=== PATIENT | female | born 1950 | race Caucasian/White ===

== ENCOUNTER → 2018-04-17 | Outpatient (CLI) | payer MEDICARE ==
[~2018-04-17] MED LIST: ABATACEPT/MALTOSE 750 MG in SODIUM CHLORIDE 0.9% 70 ML IVPB ONE; SODIUM CHLORIDE 0.9% 500 ML 500 ML in EMPTY BAG 1 BAG IV PRN
[2018-04-17 12:42] VITALS: BP 114/61; PULSE 99; RESP 16; TEMP 98
== END ==
LOC: PROCWHC3 12:27
PROVIDERS: ATTEND Internal Medicine Rheumatology
DX: M05.79 Rheumatoid arthritis with rheumatoid factor of multiple sites without organ or systems involvement (principal)
CPT/HCPCS: 96365; J0129

== ENCOUNTER 2018-07-05 18:13 | Observation (INO) | payer MEDICARE ==
--- NOTE | 2018-07-05 18:32 | ED ---
Chest Pain HPI - General Chief Complaint: Chest Pain Stated Complaint: chest pain Time Seen by Provider: 07/05/18 18:24 Source: patient, EMS Mode of arrival: EMS Limitations: no limitations - History of Present Illness Initial Comments: Patient is a 67-year-old female presenting for chest pain. The patient states that it is been intermittent for the last 2-3 weeks and worsening over the last half hour. It feels like a stabbing sensation deficit of her chest which improved with nitro and aspirin. She also admits to significant amount of indigestion and decided to come in today because the pain she had today was much more severe compared to the pain she had a couple weeks ago. She denies any fever, chills, cough, nausea/vomiting/diarrhea. - Related Data Home Medications Medication Instructions Recorded Confirmed Escitalopram [Lexapro] 10 mg PO DAILY 01/24/17 07/05/18 LORazepam [Ativan] 1 mg PO BID 01/24/17 07/05/18 Omeprazole [PriLOSEC] 20 mg PO DAILY 01/24/17 07/05/18 Ondansetron [Zofran] 4 mg PO Q8HR PRN 01/24/17 07/05/18 Pravastatin Sodium [Pravachol] 20 mg PO HS 01/24/17 07/05/18 QUEtiapine FUMARATE [SEROquel] 150 mg PO HS 01/24/17 07/05/18 Baclofen [Lioresal] 20 mg PO TID 07/05/18 07/05/18 Latanoprost/Pf [Latanoprost 0.005% 1 drop BOTH EYES HS 07/05/18 07/05/18 Eye Drop] Levothyroxine Sodium [Synthroid] 100 mcg PO DAILY 07/05/18 07/05/18 Lisinopril [Zestril] 10 mg PO DAILY 07/05/18 07/05/18 Nortriptyline HCl [Pamelor] 50 mg PO DAILY 07/05/18 07/05/18 Ranitidine HCl 150 mg PO DAILY 07/05/18 07/05/18 Allergies Allergy/AdvReac Type Severity Reaction Status Date / Time tocilizumab [From Actemra] Allergy Intermediate Rash/Hives Verified 07/05/18 18:41 Review of Systems ROS Statement: Those systems with pertinent positive or pertinent negative responses have been documented in the HPI. Constitutional: Negative for chills, fatigue and fever. HENT: Negative for congestion. Respiratory: Negative for chest tightness, shortness of breath and wheezing. Negative for cough Cardiovascular: Positive for chest pain and negative for palpitations. Gastrointestinal: Negative for abdominal pain. Negative for abdominal distention, diarrhea, nausea and vomiting. Genitourinary: Negative for dysuria. Musculoskeletal: Negative for back pain, neck pain and neck stiffness. Skin: Negative for color change. Neurological: Negative for dizziness, speech difficulty, weakness and light- headedness. Psychiatric/Behavioral: Negative for agitation and confusion. Negative for anxiety ROS Other: All systems not noted in ROS Statement are negative. EKG Findings - EKG Comments: EKG Findings:: EKG shows normal sinus rhythm with a rate of 97 bpm, NE interval 116, QRS 86, QTC 464. Past Medical History Past Medical History: Hypertension, Rheumatoid Arthritis (RA), Thyroid Disorder Additional Past Medical History / Comment(s): colitis History of Any Multi-Drug Resistant Organisms: None Reported Past Surgical History: Cholecystectomy, Hysterectomy, Tonsillectomy Past Anesthesia/Blood Transfusion Reactions: No Reported Reaction Past Psychological History: Anxiety, Depression Smoking Status: Former smoker Past Alcohol Use History: None Reported Past Drug Use History: None Reported - Past Family History Father Family Medical History: Myocardial Infarction ([place]) General Exam - General Exam Comments Initial Comments: Constitutional: Pt appears well-developed and well-nourished. No distress. Head: Normocephalic and atraumatic. Eyes: EOM are normal. Neck: Normal range of motion. Neck supple. Cardiovascular: Normal rate, regular rhythm, S1 normal, S2 normal and normal heart sounds. Exam reveals no gallop and no friction rub. No murmur heard. Pulmonary/Chest: Effort normal and breath sounds normal. No tachypnea and no bradypnea. No respiratory distress. No wheezes or rales noted. Abdominal: Soft. Bowel sounds are normal. Pt exhibits no shifting dullness, no distension, no pulsatile liver, no fluid wave, no abdominal bruit and no ascites. There is no rigidity, no rebound, no guarding, no tenderness at McBurney's point and negative Patel's sign. There is no tenderness. Musculoskeletal: Normal range of motion. Neurological: Pt is alert and oriented to person, place, and time. No cranial nerve deficit. Skin: Skin is warm and dry. No rash noted. Pt is not diaphoretic. No erythema. No pallor. Psychiatric: Pt has a normal mood and affect. Pt behavior is normal. Thought content normal. Limitations: no limitations Course Vital Signs 07/05/18 07/05/18 18:16 19:14 Temperature 97.7 F Pulse Rate 98 92 Respiratory 20 18 Rate Blood Pressure 134/92 134/74 O2 Sat by Pulse 99 100 Oximetry Chest Pain MDM - MDM Laboratory studies showed that there was no significant leukocytosis, which like derangements and from a cardiac standpoint, EKG had no significant abnormalities and d-dimer and troponin were both negative. However, because of the patient's significant risk factors, is felt that the patient should be placed in observation for continued evaluation and treatment. The time of disposition, patient was well-appearing and in no acute distress.Explained all labs and diagnostic test results and that we will admit patient to hospital. Pt is agreeable to plan and case has been discussed with Dr. Ramirez and they agree to accept the pt. Disposition Clinical Impression: Chest pain Disposition: ADMITTED IP TO THIS HOSP Condition: Good Referrals: Ramona Xiong MD [Primary Care Provider] - 1-2 days Decision to Admit Reason: Admit from EC Decision Date: 07/05/18 Decision Time: 19:57
[2018-07-05 18:43] LABS: Basophils % (A) 1 %; Eosinophils # (A) 0.1 k/uL (0-0.7); Eosinophils % (A) 1 %; HCT 36.5 % (34.0-46.0); HGB 12.2 gm/dL (11.4-16.0); Lymphocytes # (A) 2.2 k/uL (1.0-4.8); Lymphocytes % (A) 28 %; MCH 33.6 pg (25.0-35.0); MCHC 33.5 g/dL (31.0-37.0); MCV 100.5 fL (80.0-100.0); Mean Platelet Volume 6.8; Monocytes # (A) 0.5 k/uL (0-1.0); Monocytes % (A) 6 %; Neutrophils # (A) 4.8 k/uL (1.3-7.7); Neutrophils % (A) 62 %; Platelet Count 264 k/uL (150-450); RBC 3.64 m/uL (3.80-5.40); RDW 12.8 % (11.5-15.5); WBC 7.8 k/uL (3.8-10.6)
[2018-07-05 18:57] LABS: Albumin 4.2 g/dL (3.5-5.0); Calcium 9.4 mg/dL (8.4-10.2); Potassium 4.6 mmol/L (3.5-5.1); Total Bilirubin 0.5 mg/dL (0.2-1.3); Total Protein 7.2 g/dL (6.3-8.2)
--- NOTE | 2018-07-05 19:00 | XR ---
EXAMINATION TYPE: XR chest 2V DATE OF EXAM: 07/05/2018 COMPARISON: NONE HISTORY: Chest pain TECHNIQUE: Frontal and lateral views of the chest are obtained. FINDINGS: There is no focal air space opacity, pleural effusion, or pneumothorax seen. The cardiac silhouette size is within normal limits. The osseous structures are intact. Minimal degenerative ch anges of the spine are noted. IMPRESSION: No acute cardiopulmonary process.
[2018-07-05 19:11] LABS: D-Dimer 0.2 mg/L FEU (<0.60); INR 0.9 (<1.2); Partial Thromboplastin Time 22.1 sec (22.0-30.0); Prothrombin Time 10.1 sec (9.0-12.0)
[2018-07-05] MEDS ORDERED: NITROGLYCERIN SL TABS 0.4 MG TAB SUBLINGUAL PRN (19:52)
[2018-07-05] MEDS: ATORVASTATIN 40 MG TAB PO SCH (22:08)
[2018-07-05] MEDS ORDERED: MAG HYDROX/AL HYDROX/SIMETH 30 ML CUP PO PRN (22:17)
[2018-07-05] MEDS ORDERED: ONDANSETRON 4 MG/2 ML VIAL IVP PRN (22:20)
[2018-07-05] MEDS ORDERED: NALOXONE 0.4 MG/ML 1 ML VIAL IV PRN (22:20)
[2018-07-05] MEDS ORDERED: MORPHINE SULFATE 4 MG/ML SYRINGE IV PRN (22:20)
--- NOTE | 2018-07-05 22:29 | P.HPIM ---
History of Present Illness H&P Date: 07/05/18 Chief Complaint: chest pain 67-year-old female with history of depression, hypertension, hyperlipidemia Patient presented to the hospital with two-week history of intermittent chest pain however today she had a severe attack that lasted longer than the other ones. He was more severe in character. She described it as stabbing in nature retrosternal radiating to the left arm 10 out of 10 in severity associated with nausea but no vomiting, associated with some dizziness and shortness of breath but no sweating. She was relaxed at home trying to get changed when the attack happened. Earlier she carried on her normal activities around the house she was able to move a 30 pound table with the assistance of her daughter with no limitations. However she does recall that over the past 2 weeks she was having random attacks of sudden onset chest pain of less severity that resolves on its own and was off-and-on over the past 2 weeks. She called an ambulance and pain improved after taking aspirin in the ambulance and then improved further after taking the sublingual nitro patient is also reporting some indigestion for which she takes ranitidine and omeprazole at home. Patient doesn't take aspirin on regular basis because it upsets her stomach. She denies any history of EGD she denies any history of bloody bowel movements or melena. She had a colonoscopy recently which reported to be normal Patient reports that she had a stress test 3 years ago and was negative she never had the left heart cath Patient was hospitalized in January 2017 for colitis. Patient is currently more comfortable she continues to have milder form of the pain and she is also complaining of some indigestion. Otherwise her initial labs and EKG was unremarkable Review of Systems Pertinent positives as noted in HPI. 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, B/L catarct surgery Past Anesthesia/Blood Transfusion Reactions: No Reported Reaction Smoking Status: Former smoker - Past Family History Father Family Medical History: Myocardial Infarction ([place]) Medications and Allergies Home Medications Medication Instructions Recorded Confirmed Type Escitalopram [Lexapro] 10 mg PO DAILY 01/24/17 07/05/18 History LORazepam [Ativan] 1 mg PO BID 01/24/17 07/05/18 History Omeprazole [PriLOSEC] 20 mg PO DAILY 01/24/17 07/05/18 History Ondansetron [Zofran] 4 mg PO Q8HR PRN 01/24/17 07/05/18 History Pravastatin Sodium [Pravachol] 20 mg PO HS 01/24/17 07/05/18 History QUEtiapine FUMARATE [SEROquel] 150 mg PO HS 01/24/17 07/05/18 History Baclofen [Lioresal] 20 mg PO TID 07/05/18 07/05/18 History Latanoprost/Pf [Latanoprost 0.005% 1 drop BOTH EYES HS 07/05/18 07/05/18 History Eye Drop] Levothyroxine Sodium [Synthroid] 100 mcg PO DAILY 07/05/18 07/05/18 History Lisinopril [Zestril] 10 mg PO DAILY 07/05/18 07/05/18 History Nortriptyline HCl [Pamelor] 50 mg PO DAILY 07/05/18 07/05/18 History Ranitidine HCl 150 mg PO DAILY 07/05/18 07/05/18 History Allergies Allergy/AdvReac Type Severity Reaction Status Date / Time [facility] Allergy Intermediate Rash/Hives Verified 07/05/18 20:39 Physical Exam Vitals: Vital Signs Temp Pulse Resp BP Pulse Ox 07/05/18 21:42 18 07/05/18 20:23 92 18 135/68 98 07/05/18 19:14 92 18 134/74 100 07/05/18 18:16 97.7 F 98 20 134/92 99 Intake and Output 07/05/18 07/05/18 07/05/18 06:59 14:59 22:59 Other: # Voids 1 Weight 72.121 kg Constitutional: No acute distress, conversant, pleasant Eyes: Anicteric sclerae, moist conjunctiva, no lid-lag Pupils equal round reactive to light ENMT: NC/AT Oropharynx clear, no erythema, or exudates Neck: Supple, FROM, no masses, or JVD No carotid bruits No thyromegaly Lungs: Clear to auscultation Clear to percussion Normal respiratory effort, no accessory muscle use Cardiovascular: Heart regular in rate and rhythm, No murmurs, gallops, or rubs No peripheral edema Chest pain is not reproducible by palpation of the chest Abdominal: Soft Discomfort to deep palpation of the epigastric region , no guarding, rebound or rigidity Abdomen moving with respiration Normoactive bowel sounds No hepatomegaly, No splenomegaly No palpable mass No abdominal wall hernia noted Skin: Normal temperature, tone, texture, turgor No induration No subcutaneous nodules No rash, lesions No ulcers Extremities: No digital cyanosis No clubbing Pedal pulses intact and symmetrical Radial pulses intact and symmetrical No calf tenderness Psychiatric: Alert and oriented to person, place and time Appropriate affect fair judgment Neuro Muscles Strength 5/5 in all 4 extremities Sensation to light touch grossly present throughout Cranial nerves II-XII grossly intact No focal sensory deficits Lymphatics: no palpable cervical or supraclavicular , or inguinal lymph nodes Results CBC & Chem 7: 07/05/18 18:31 07/05/18 18:31 Labs: Abnormal Lab Results - Last 24 Hours (Table) 07/05/18 07/05/18 Range/Units 18:31 18:31 RBC 3.64 L (3.80-5.40) m/uL MCV 100.5 H (80.0-100.0) fL BUN 18 H (7-17) mg/dL Glucose 107 H (74-99) mg/dL Thrombosis Risk Factor Assmnt - Choose All That Apply Each Risk Factor Represents 2 Points: Age 61-74 years Thrombosis Risk Factor Assessment Total Risk Factor Score: 2 Thrombosis Risk Factor Assessment Level: Low Risk Assessment and Plan Assessment: 67-year-old female with history of hypertension and hyperlipidemia, patient has history of angina. Admitted as an observation with anticipated length of stay less than 48 hours for unstable angina started today. Patient also reported symptoms of indigestion. Initial labs and EKG was unremarkable. Patient pain improved with nitro, will be admitted for further care and monitoring Plan: Unstable angina Aspirin Nitro when necessary Atorvastatin Continue home medications Cardiac monitoring Trend cardiac enzymes Cardiology evaluation Nothing by mouth after midnight Morphine when necessary for severe pain When necessary benzos for anxiety Gastritis PPI daily Maalox when necessary Chronic conditions Arthritis Hypertension Hypothyroid Hyperlipidemia Continue home meds DVT prophylaxis heparin subcu 3 times a day Surrogate decision-maker: Patient's CODE STATUS: Full code Discussed with: Patient, ER Anticipated discharge: <[address]: Home A total of 60 minutes was spent on the care of this complex patient more than 50% of the time was spent in counseling and care coordination.
[2018-07-05] MEDS: LORazepam 1 MG TAB PO SCH (23:06)
[2018-07-05] MEDS: HEPARIN SODIUM,PORCINE 5,000 UNIT/ML 1 ML VIAL SQ SCH (23:06)
[2018-07-05] MEDS: NORTRIPTYLINE 25 MG CAP PO SCH (23:06)
[2018-07-05] MEDS: LATANOPROST 0.005% OPHTH DROPS 2.5 ML BTL BOTH EYES SCH (23:06)
[2018-07-05] MEDS: PANTOPRAZOLE 40 MG TABLET PO SCH (23:07)
[2018-07-05] MEDS: QUEtiapine 50 MG TAB PO SCH (23:07)
[2018-07-05] MEDS: MELATONIN 3 MG TABLET PO SCH (23:10)
[2018-07-05] MEDS: SODIUM CHLORIDE 0.9% 1,000 ML IV SCH (23:11)
[2018-07-05] MEDS ORDERED: BACLOFEN 10 MG TAB PO SCH (23:47)
[2018-07-06] MEDS: BACLOFEN 10 MG TAB PO SCH ×4 (00:13→20:15)
[2018-07-06] MEDS: LEVOTHYROXINE 100 MCG TAB PO SCH (06:25)
[2018-07-06] MEDS: LORazepam 1 MG TAB PO SCH ×2 (08:46→20:15)
[2018-07-06] MEDS: HEPARIN SODIUM,PORCINE 5,000 UNIT/ML 1 ML VIAL SQ SCH ×3 (08:46→23:13)
[2018-07-06] MEDS: PANTOPRAZOLE 40 MG TABLET PO SCH (08:47)
[2018-07-06] MEDS: ESCITALOPRAM 10 MG TAB PO SCH (08:47)
[2018-07-06] MEDS: ASPIRIN 325 MG TAB PO SCH (08:47)
[2018-07-06] MEDS: NORTRIPTYLINE 25 MG CAP PO SCH (08:47)
[2018-07-06] MEDS: LISINOPRIL 10 MG TAB PO SCH (08:47)
[2018-07-06] MEDS: SODIUM CHLORIDE 0.9% 1,000 ML IV SCH ×3 (08:49→23:16)
[2018-07-06 08:58] LABS: Basophils % (A) 1 %; Eosinophils # (A) 0.1 k/uL (0-0.7); Eosinophils % (A) 2 %; HCT 33.3 % (34.0-46.0); HGB 10.7 gm/dL (11.4-16.0); Lymphocytes # (A) 1.6 k/uL (1.0-4.8); Lymphocytes % (A) 33 %; MCH 32.3 pg (25.0-35.0); MCHC 32.2 g/dL (31.0-37.0); MCV 100.1 fL (80.0-100.0); Mean Platelet Volume 7.2; Monocytes # (A) 0.4 k/uL (0-1.0); Monocytes % (A) 8 %; Neutrophils # (A) 2.8 k/uL (1.3-7.7); Neutrophils % (A) 55 %; Platelet Count 216 k/uL (150-450); RBC 3.33 m/uL (3.80-5.40); RDW 12.6 % (11.5-15.5)
[2018-07-06] MEDS ORDERED: BACLOFEN 10 MG TAB PO SCH ×2 (09:00→23:29)
[2018-07-06 09:12] LABS: Anion Gap 7 mmol/L; Blood Urea Nitrogen 16 mg/dL (7-17); Calcium 8.9 mg/dL (8.4-10.2); Carbon Dioxide 24 mmol/L (22-30); Chloride 108 mmol/L (98-107); Cholesterol 152 mg/dL (<200); Glucose 100 mg/dL (74-99); HDL Cholesterol 64 mg/dL (40-60); LDL Cholesterol,Calculated 64 mg/dL (0-99); Potassium 4.7 mmol/L (3.5-5.1); Sodium 139 mmol/L (137-145); Triglycerides 119 mg/dL (<150)
[2018-07-06] MEDS ORDERED: SODIUM CHLORIDE 0.9% 1,000 ML in EMPTY BAG 1 BAG IV ONE (12:21)
--- NOTE | 2018-07-06 12:24 | P.CRDCN ---
History of Present Illness History of present illness: This is a pleasant 67-year-old female past medical history significant for hypertension, dyslipidemia, hypothyroidism, rheumatoid arthritis, anxiety, depression and chronic nicotine dependence of which she quit 4 months ago. She denies history of coronary artery disease and has never seen a radio division lieutenant for any reason. We have been asked to see her in consultation for symptoms of chest discomfort. She states yesterday while changing her clothes she started feeling a sharp pain in the mid-sternal region with radiation to the left arm with shortness of breath. This persisted for approximately 20 minutes until given SL nitro and aspirin per EMS. She has felt intermittent similar type pains overnight since coming to the hospital all while laying in bed at rest. No exert ional chest pain. She denies associated nausea, vomiting, palpitations, diaphoresis or dizziness. EKG reveals sinus mechanism with no acute ST or T wave abnormalities noted. Chest x-ray is negative for an acute cardiopulmonary process. Laboratory data reviewed, WBC 5, hemoglobin 10.7, platelets 216, d-dimer 0.2, sodium 139, potassium 4.7, creatinine 0.73, cardiac enzymes negative 3, LDL 64, HDL 64. Current cardiac medications include pravastatin 20 mg daily, lisinopril 10 mg daily. At the time of my exam: CONSTITUTIONAL: Denies fever. Denies chills. EYES: Denies blurred vision. Denies vision changes. Denies eye pain. EARS, NOSE, MOUTH & THROAT: Denies headache. Denies sore throat. Denies ear pain. CARDIOVASCULAR: Denies chest pain. Denies shortness of breath. Denies orthopnea. Denies PND. Denies palpitations. RESPIRATORY: Denies cough. GASTROINTESTINAL: Denies abdominal pain. Denies diarrhea. Denies constipation. Denies nausea. Denies vomiting. MUSCULOSKELETAL: Denies myalgias. INTEGUMENTARY: Denies pruitis. Denies rash. NEUROLOGIC: Denies numbness. Denies tingling. Denies weakness. PSYCHIATRIC: Denies anxiety. Denies depression. ENDOCRINE: Denies fatigue. Denies weight change. Denies polydipsia. Denies polyurina. GENITOURINARY: Denies burning, hematuria or urgency with micturation. HEMATOLOGIC: Denies history of anemia. Denies bleeding. Blood pressure 113/66 heart rate 84 afebrile maintaining oxygen saturation on room air GENERAL: This is a 67-year-old female in no apparent distress at the time of my examination. HEENT: Head is atraumatic, normocephalic. Pupils are equal, round. Sclerae anicteric. Conjunctivae are clear. Mucous membranes of the mouth are moist. Neck is supple. There is no jugular venous distention. No carotid bruit is heard. LUNGS: Clear to auscultation no wheezes, rales or rhonchi. No chest wall tenderness is noted on palpation or with deep breathing. HEART: Regular rate and rhythm without murmurs, rubs or gallops. S1 and S2 he radha. ABDOMEN: Soft, nontender. Bowel sounds are heard. No organomegaly noted. EXTREMITIES: No evidence of peripheral edema and no calf tenderness noted. VASCULAR: Radial and dorsalis pedis pulses palpated, no evidence of clubbing. NEUROLOGIC: Patient is awake, alert and oriented x3. ASSESSMENT Unstable angina Hypertension Dyslipidemia Hypothyroid Chronic nicotine dependence, quit 4 months ago Family history of coronary artery disease with father requiring bypass surgery PLAN An acute coronary event has been ruled out. However symptoms are concerning for unstable angina and given the patient's risk factors we recommend proceeding with cardiac catheterization. I have discussed the risks, benefits and alternative therapies for the above-mentioned procedure and for both sedation/analgesia as well as necessary blood product administration, if indicated, as they pertain to this patient. The patient has indicated understanding and acceptance of the risks and procedures discussed. Questions have been answered appropriately and she is agreeable to move forward with the above stated procedure. she will be nothing by mouth after midnight tonight for the procedure tomorrow morning. Obtain 2-D echocardiogram and Doppler study to assess cardiac structure and function. Further recommendations to follow based upon clinical course. Thank you kindly for this consultation. Nurse Practitioner note has been reviewed, I agree with a documented findings and plan of care. Patient was seen and examined. 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, B/L catarct surgery Past Anesthesia/Blood Transfusion Reactions: No Reported Reaction Smoking Status: Former smoker - Past Family History Father Family Medical History: Myocardial Infarction ([place]) Medications and Allergies Home Medications Medication Instructions Recorded Confirmed Type Escitalopram [Lexapro] 10 mg PO DAILY 01/24/17 07/05/18 History LORazepam [Ativan] 1 mg PO BID 01/24/17 07/05/18 History Omeprazole [PriLOSEC] 20 mg PO DAILY 01/24/17 07/05/18 History Ondansetron [Zofran] 4 mg PO Q8HR PRN 01/24/17 07/05/18 History Pravastatin Sodium [Pravachol] 20 mg PO HS 01/24/17 07/05/18 History QUEtiapine FUMARATE [SEROquel] 150 mg PO HS 01/24/17 07/05/18 History Baclofen [Lioresal] 20 mg PO TID 07/05/18 07/05/18 History Latanoprost/Pf [Latanoprost 0.005% 1 drop BOTH EYES HS 07/05/18 07/05/18 History Eye Drop] Levothyroxine Sodium [Synthroid] 100 mcg PO DAILY 07/05/18 07/05/18 History Lisinopril [Zestril] 10 mg PO DAILY 07/05/18 07/05/18 History Nortriptyline HCl [Pamelor] 50 mg PO DAILY 07/05/18 07/05/18 History Ranitidine HCl 150 mg PO DAILY 07/05/18 07/05/18 History Allergies Allergy/AdvReac Type Severity Reaction Status Date / Time tocilizumab [From [facility]] Allergy Intermediate Rash/Hives Verified 07/05/18 20:39 Physical Exam Vitals: Vital Signs Temp Pulse Pulse Resp BP BP Pulse Ox 07/06/18 04:00 97.9 F 84 16 113/66 98 07/06/18 00:00 18 07/05/18 23:25 97.7 F 109 H 18 137/69 97 07/05/18 21:42 18 07/05/18 20:23 92 18 135/68 98 07/05/18 19:14 92 18 134/74 100 07/05/18 18:16 97.7 F 98 20 134/92 99 Intake and Output 07/05/18 07/06/18 07/06/18 21:59 06:59 14:59 Other: # Voids Weight Results 07/06/18 08:28 07/06/18 08:28 Cardiac Enzymes 07/05/18 07/05/18 07/06/18 Range/Units 18:31 18:31 00:31 AST 27 (14-36) U/L Troponin I <0.012 <0.012 (0.000-0.034) ng/mL Coagulation 07/05/18 Range/Units 18:31 PT 10.1 (9.0-12.0) sec APTT 22.1 (22.0-30.0) sec CBC 07/05/18 Range/Units 18:31 WBC 7.8 (3.8-10.6) k/uL RBC 3.64 L (3.80-5.40) m/uL Hgb 12.2 (11.4-16.0) gm/dL Hct 36.5 (34.0-46.0) % Plt Count 264 (150-450) k/uL Comprehensive Metabolic Panel 07/05/18 Range/Units 18:31 Sodium 138 (137-145) mmol/L Potassium 4.6 (3.5-5.1) mmol/L Chloride 104 (98-107) mmol/L Carbon Dioxide 24 (22-30) mmol/L BUN 18 H (7-17) mg/dL Creatinine 0.91 (0.52-1.04) mg/dL Glucose 107 H (74-99) mg/dL Calcium 9.4 (8.4-10.2) mg/dL AST 27 (14-36) U/L ALT 48 (9-52) U/L Alkaline Phosphatase 97 (38-126) U/L Total Protein 7.2 (6.3-8.2) g/dL Albumin 4.2 (3.5-5.0) g/dL Current Medications Generic Name Dose Route Start Last Admin Trade Name Freq PRN Reason Stop Dose Admin Al Hydroxide/Mg Hydroxide 30 ml 07/05/18 22:17 Maalox PO Q4HR PRN GI Upset Aspirin 325 mg 07/06/18 09:00 Aspirin PO DAILY [facility] Atorvastatin Calcium 40 mg 07/05/18 21:00 07/05/18 22:08 Lipitor PO 40 mg HS [facility] Administration Baclofen 20 mg 07/06/18 00:02 07/06/18 00:13 Lioresal PO 20 mg TID [facility] Administration Escitalopram Oxalate 10 mg 07/06/18 09:00 Lexapro PO DAILY [facility] Heparin Sodium (Porcine) 5,000 unit 07/06/18 00:00 07/05/18 23:06 Heparin SQ 5,000 unit Q8HR [facility] Administration Sodium Chloride 1,000 mls @ 100 mls/hr 07/05/18 22:30 07/05/18 23:11 Saline 0.9% IV 100 mls/hr .Q10H [facility] Administration Latanoprost 1 drops 07/05/18 23:00 07/05/18 23:06 Xalatan 0.005% BOTH EYES 1 drops HS [facility] Administration Levothyroxine Sodium 100 mcg 07/06/18 06:30 07/06/18 06:25 Synthroid PO 100 mcg DAILY@0630 [facility] Administration Lisinopril 10 mg 07/06/18 09:00 Zestril PO DAILY [facility] Lorazepam 1 mg 07/05/18 22:30 07/05/18 23:06 Ativan PO 1 mg BID [facility] Administration Melatonin 3 mg 07/05/18 22:30 07/05/18 23:10 Melatonin PO 3 mg HS [facility] Administration Morphine Sulfate 4 mg 07/05/18 22:20 Morphine Sulfate (Inj) IV Q4HR PRN Severe Pain Naloxone HCl 0.2 mg 07/05/18 22:20 Narcan IV Q2M PRN Opioid Reversal Nitroglycerin 0.4 mg 07/05/18 19:52 07/05/18 22:08 Nitrostat SUBLINGUAL 0.4 mg Q5M PRN Administration Chest Pain Nortriptyline HCl 50 mg 07/05/18 23:00 07/05/18 23:06 Pamelor PO 50 mg DAILY [facility] Administration Ondansetron HCl 4 mg 07/05/18 22:20 Zofran IVP Q8HR PRN Nausea And Vomiting Pantoprazole Sodium 40 mg 07/05/18 22:30 07/05/18 23:07 Protonix PO 40 mg DAILY [facility] Administration Quetiapine Fumarate 150 mg 07/05/18 23:00 07/05/18 23:07 Seroquel PO 150 mg HS [facility] Administration Intake and Output 07/05/18 07/06/18 07/06/18 21:59 06:59 14:59 Other: # Voids Weight 07/05/18 18:31 07/05/18 18:31
--- NOTE | 2018-07-06 12:47 | P.PN ---
Subjective Progress Note Date: 07/06/18 Principal diagnosis: Unstable angina Patient was seen and examined. No acute events overnight. Patient reports improvement in her chest pain, currently intermittent (had some episodes overnight), 2-3 out of 10 in severity. Chest pain is not associated with sweating, nausea or vomiting, palpitations, shortness of breath or dizziness. No fever or chills. Objective - Vital Signs Vital signs: Vital Signs Temp 98.2 F 07/06/18 12:00 Pulse 96 07/06/18 12:00 Resp 16 07/06/18 12:00 BP 114/70 07/06/18 12:00 Pulse Ox 98 07/06/18 12:00 Intake & Output 07/05/18 07/06/18 07/06/18 17:59 06:59 18:59 Weight Other: Voiding Method Toilet # Voids - Exam General: [non toxic], [no distress], [appears at stated age], [eating lunch comfortably] Derm: [warm], [dry] Head: [atraumatic], [normocephalic], [symmetric] Eyes: [EOMI], [no lid lag], [anicteric sclera] Mouth: [no lip lesion], [mucus membranes moist] Cardiovascular: [S1S2 reg], [no murmur], [positive DP pulse bilateral] Lungs: [CTA bilateral], [no rhonchi, no rales] , [no accessory muscle use] Abdominal: [soft], [ nontender to palpation], [no guarding], [no appreciable organomegaly] Ext: [no gross muscle atrophy], [no edema], [no contractures] Neuro: [no focal neuro deficits] Psych: [Alert], [oriented], [appropriate affect] - Labs CBC & Chem 7: 07/06/18 08:28 07/06/18 08:28 Labs: Abnormal Lab Results - Last 24 Hours (Table) 07/05/18 07/05/18 07/06/18 Range/Units 18:31 18:31 08:28 RBC 3.64 L (3.80-5.40) m/uL Hgb (11.4-16.0) gm/dL Hct (34.0-46.0) % MCV 100.5 H (80.0-100.0) fL Chloride 108 H (98-107) mmol/L BUN 18 H (7-17) mg/dL Glucose 107 H 100 H (74-99) mg/dL HDL Cholesterol 64 H (40-60) mg/dL 07/06/18 Range/Units 08:28 RBC 3.33 L (3.80-5.40) m/uL Hgb 10.7 L (11.4-16.0) gm/dL Hct 33.3 L (34.0-46.0) % MCV 100.1 H (80.0-100.0) fL Chloride (98-107) mmol/L BUN (7-17) mg/dL Glucose (74-99) mg/dL HDL Cholesterol (40-60) mg/dL Assessment and Plan Assessment: Assessment and Plan 1. Unstable angina 2. Hypertension 3. Hypothyroidism 4. Macrocytosis 1. Concerning given constellations of symptoms and family history. Chest x-ray negative. Troponin less than 0.012 x 3, EKG showing normal sinus rhythm. Cardiology consulted, recommends coronary angiogram tomorrow. Continue aspirin and Lipitor. Morphine and Nitrostat as needed for chest pain. Telemetry monitoring. Follow echocardiogram results. Follow Cardiology recommendations. 2. BP 114/70. Continue lisinopril. Monitor vitals, adjust medications as necessary. 3. Continue Synthroid. 4. MCV 100.5 without anemia. Will follow B12 and folate. Patient admitted for unstable angina, cardiology is on consult. Plans for catheterization tomorrow.
[2018-07-06] MEDS: NITROGLYCERIN OINT 1 INCH/GM PACKET TOPICAL SCH ×3 (13:56→20:23)
[2018-07-06] MEDS: LATANOPROST 0.005% OPHTH DROPS 2.5 ML BTL BOTH EYES SCH (20:14)
[2018-07-06] MEDS: MELATONIN 3 MG TABLET PO SCH (20:15)
[2018-07-06] MEDS: QUEtiapine 50 MG TAB PO SCH (20:15)
[2018-07-06] MEDS: ATORVASTATIN 40 MG TAB PO SCH (20:16)
[2018-07-06] MEDS ORDERED: ACETAMINOPHEN TAB 325 MG TAB PO PRN (20:55)
[2018-07-07] MEDS: BACLOFEN 10 MG TAB PO SCH ×2 (06:30→14:51)
[2018-07-07] MEDS: LEVOTHYROXINE 100 MCG TAB PO SCH (06:30)
[2018-07-07] MEDS: ASPIRIN 325 MG TAB PO SCH (06:30)
[2018-07-07] MEDS: ATORVASTATIN 40 MG TAB PO SCH (06:30)
[2018-07-07] MEDS: NORTRIPTYLINE 25 MG CAP PO SCH (06:31)
[2018-07-07] MEDS: PANTOPRAZOLE 40 MG TABLET PO SCH (06:31)
[2018-07-07] MEDS: LISINOPRIL 10 MG TAB PO SCH ×2 (06:31→06:36)
[2018-07-07] MEDS: ESCITALOPRAM 10 MG TAB PO SCH (06:31)
[2018-07-07] MEDS: LORazepam 1 MG TAB PO SCH (06:31)
[2018-07-07] MEDS: HEPARIN SODIUM,PORCINE 5,000 UNIT/ML 1 ML VIAL SQ SCH ×2 (09:25→14:54)
[2018-07-07] MEDS ORDERED: fentaNYL (PF) 50 MCG/ML 2 ML AMP ONE (09:44)
[2018-07-07] MEDS ORDERED: LIDOCAINE 1% INJ 10MG/ML (20 ML MDV) ONE (09:44)
[2018-07-07] MEDS ORDERED: VERAPAMIL 2.5 MG/ML 2 ML AMP ONE (09:45)
[2018-07-07] MEDS ORDERED: fentaNYL (PF) 50 MCG/ML 2 ML AMP IV ONE (10:00)
[2018-07-07] MEDS ORDERED: IV FLUID CONTINUATION 1,000 ML IV ONE (10:00)
[2018-07-07] MEDS ORDERED: MIDAZOLAM 2 MG/2 ML VIAL IV ONE (10:00)
[2018-07-07] MEDS ORDERED: IOPAMIDOL-370 125ML BTL INJ ONE (10:16)
[2018-07-07] MEDS ORDERED: RX INFO: IV CONTRAST WAS GIVEN 1 EACH MISC MISCELLANE PRN (10:27)
--- NOTE | 2018-07-07 10:27 | P.CARDCATH ---
Date of Procedure: 07/07/18 Preoperative Diagnosis: Unstable angina Postoperative Diagnosis: Mild diffuse disease without any critical lesions Procedure(s) Performed: Left heart catheterization without left ventriculography Description of Procedure: HISTORY: This is a 67-year-old female with history of hyperlipidemia and hypertension who was admitted to the hospital with chest pains relieved with nitroglycerin and cardiac enzymes and EKGs were normal. Patient is advised to have a stress test or cardiac catheterization for definitive diagnosis. Patient preferred to have cardiac catheterization CONSENT:I have discussed the risks, benefits and alternative therapies for the above-mentioned procedure and for both sedation/analgesia as well as necessary blood product administration, if indicated, as they pertain to this patient. The patient has indicated understanding and acceptance of the risks and procedures discussed. PROCEDURE: Patient was brought to the lab in a fasting state. Patient was given some IV sedation. The right groin is infiltrated with lidocaine and right femoral artery was entered using Seldinger technique. A 6-Armenian catheter was left in place and selective coronary arteriography was performed. Patient tolerated the procedure well. Femoral angiogram was performed and Angio-Seal was applied for hemostasis. No immediate complications were noted and patient was transferred to [facility] in a stable condition. Patient is found have calcification and mild disease in the femoral arteries Conscious Sedation: Versed 1mg Fentanyl 50 g Duration 19minutes HEMODYNAMICS: Aortic pressure is about 140/90. Left ankle end-diastolic pressure is about 18-20. There was no gradient across the aortic valve SELECTIVE CORONARY ARTERIOGRAPHY: LEFT MAIN: Normal length and free of any occlusive disease THE LEFT ANTERIOR DESCENDING CORONARY ARTERY:. This is a fair caliber vessel with calcification noted in the proximal portion with mild intimal plaque. The LAD gives rise to good-sized diagonal branch and septal branch proximally and small branches distally. The LAD and its branches are free of any significant focal occlusive disease THE LEFT CIRCUMFLEX AND IS CORONARY ARTERY:. This is a moderate caliber vessel giving rise good-sized OM branch. The circumflex is free of any significant focal occlusive disease THE RIGHT CORONARY ARTERY:. This is a also a good caliber vessel and dominant and distribution. Has calcification and mild diffuse disease involving the proximal and midportion with areas of about 30-40% stenosis. No critical lesions are noted LEFT VENTRICULOGRAPHY:. This was not performed FINAL IMPRESSION:. Mild diffuse coronary artery disease with calcification with about 30-40% luminal narrowing in the right coronary artery PLAN: Continuation maximum medical therapy and this factor modification PROGNOSIS: Fair
[2018-07-07] MEDS ORDERED: SODIUM CHLORIDE 0.9% 1,000 ML IV SCH (10:30)
--- NOTE | 2018-07-07 11:56 | ECHOF ---
Referral Reason: MEASUREMENTS -------- HEIGHT: 160.0 cm WEIGHT: 72.1 kg BP: 137/79 IVSd: 1.0 cm (0.6 - 1.1) LVIDd: 4.3 cm (3.9 - 5.3) LVPWd: 0.9 cm (0.6 - 1.1) IVSs: 1.3 cm LVIDs: 2.7 cm LVPWs: 1.4 cm LAESV Index (A-L): 16.45 ml/m Ao Diam: 2.8 cm (2.0 - 3.7) AV Cusp: 2.0 cm (1.5 - 2.6) LA Diam: 3.0 cm (2.7 - 3.8) MV EXCURSION: 12.495 mm (> 18.000) MV EF SLOPE: 57 mm/s (70 - 150) EPSS: 0.4 cm MV E Fidel: 0.93 m/s MV DecT: 210 ms MV A Fidel: 1.18 m/s MV E/A Ratio: 0.79 RAP: 5.00 mmHg RVSP: 9.27 mmHg FINDINGS -------- Sinus rhythm. This was a technically good study. The left ventricular size is normal. There is mild concentric left ventricular hypertrophy. Overa ll left ventricular systolic function is normal with, an EF between 55 - 60 %. The right ventricle is normal in size. Normal LA size by volume 22+/-6 ml/m2. The right atrial size is normal. The aortic valve is trileaflet, and appears structurally normal. No aortic stenosis or regurgitation. The mitral valve is normal. Mild mitral regurgitation is present. Mild tricuspid regurgitation present. There is no evidence of pulmonary hypertension. The right v entricular systolic pressure, as measured by Doppler, is 9.27mmHg. There is no pulmonic regurgitation present. The aortic root size is normal. Normal inferior vena cava with normal inspiratory collapse consistent with estimated right atrial pre ssure of 5 mmHg. There is no pericardial effusion. CONCLUSIONS -------- 1. Sinus rhythm. 2. This was a technically good study. 3. The left ventricular size is normal. 4. There is mild concentric left ventricular hypertrophy. 5. Overall left ventricular systolic function is normal with, an EF between 55 - 60 %. 6. Normal LA size by volume 22+/-6 ml/m2. 7. The aortic valve is trileaflet, and appears structurally normal. No aortic stenosis or regurgitati on. 8. Mild mitral regurgitation is present. 9. Mild tricuspid regurgitation present. 10. There is no evidence of pulmonary hypertension. 11. There is no pulmonic regurgitation present. 12. The aortic root size is normal. 13. Normal inferior vena cava with normal inspiratory collapse consistent with estimated right atrial pressure of 5 mmHg. 14. There is no pericardial effusion. [employer] ARC: Fely Turner RDCS
[2018-07-07 14:30] VITALS: RESP 18
[2018-07-07 15:59] VITALS: BP 135/77; PULSE 97; TEMP 98
--- NOTE | 2018-07-07 17:43 | P.DS ---
Providers Date of admission: 07/05/18 19:57 Expected date of discharge: 07/07/18 Attending physician: Hanane Mccray MD Consults: 07/05/18 19:52 Consult Physician Urgent Consulting Provider: Abrahan Keller Consult Reason/Comments: Chest pain Do you want consulting provider notified?: Yes, Notify in am [facility]: 67-year-old female with history of depression, hypertension, hyperlipidemia Patient presented to the hospital with two-week history of intermittent chest pain however today she had a severe attack that lasted longer than the other ones. He was more severe in character. She described it as stabbing in nature retrosternal radiating to the left arm 10 out of 10 in severity associated with nausea but no vomiting, associated with some dizziness and shortness of breath but no sweating. She was relaxed at home trying to get changed when the attack happened. Earlier she carried on her normal activities around the house she was able to move a 30 pound table with the assistance of her daughter with no limitations. However she does recall that over the past 2 weeks she was having random attacks of sudden onset chest pain of less severity that resolves on its own and was off-and-on over the past 2 weeks. She called an ambulance and pain improved after taking aspirin in the ambulance and then improved further after taking the sublingual nitro patient is also reporting some indigestion for which she takes ranitidine and omeprazole at home. Patient doesn't take aspirin on regular basis because it upsets her stomach. She denies any history of EGD she denies any history of bloody bowel movements or melena. She had a colonoscopy recently which reported to be normal Patient reports that she had a stress test 3 years ago and was negative she never had the left heart cath Patient was hospitalized in January 2017 for colitis. Patient is currently more comfortable she continues to have milder form of the pain and she is also complaining of some indigestion. Otherwise her initial labs and EKG was unremarkable. Troponin was less than 0.0123, with EKG showing normal sinus rhythm. Echocardiogram showed EF of 55-60%. Cardiology was consulted and recommended catheterization for unstable angina. Coronary catheterization was performed which showed a 30% occlusion in the RCA. Patient was seen and examined prior to discharge. No acute events overnight. Patient reports improvement in her chest pain, though persistent 2 out of 10 in severity. Pain is nonpleuritic and does not change with movement. She denies any shortness of breath or palpitations. at bedside, looking for to going home. General: [non toxic], [no distress], [appears at stated age] Derm: [warm], [dry] Head: [atraumatic], [normocephalic], [symmetric] Eyes: [EOMI], [no lid lag], [anicteric sclera] Mouth: [no lip lesion], [mucus membranes moist] Cardiovascular: [S1S2 reg], [no murmur], [positive DP pulse bilateral], [tenderness in the left sternal region] Lungs: [CTA bilateral], [no rhonchi, no rales] , [no accessory muscle use] Abdominal: [soft], [ nontender to palpation], [no guarding], [no appreciable organomegaly] Ext: [no gross muscle atrophy], [no edema], [no contractures] Neuro: [no focal neuro deficits] Psych: [Alert], [oriented], [appropriate affect] Assessment and Plan 1. Unstable angina 2. Hypertension 3. Hypothyroidism 4. Macrocytosis 1. Concerning given constellations of symptoms and family history. Chest x-ray negative. Troponin less than 0.012 x 3, EKG showing normal sinus rhythm. Cardiology consulted, coronary catheterization performed today, 30% RCA.. Continue aspirin and Lipitor. Morphine and Nitrostat as needed for chest pain. Telemetry monitoring. echocardiogram is within normal limits. Cardiology consulted, recommended medical management. 2. BP 135/77. Continue lisinopril. Monitor vitals, adjust medications as necessary. 3. Continue Synthroid. 4. MCV 100.5 without anemia. Will follow B12 and folate. Patient to be discharged after cardiology clears. Pertinent Studies: chest x-ray, echocardiogram Procedures: cardiac catheterization Patient Condition at Discharge: Good Plan - Discharge Summary New Discharge Prescriptions: New Aspirin 81 mg PO DAILY #30 chewable Metoprolol Tartrate [Lopressor] 25 mg PO BID #60 tab Continue QUEtiapine FUMARATE [SEROquel] 150 mg PO HS Pravastatin Sodium [Pravachol] 20 mg PO HS LORazepam [Ativan] 1 mg PO BID Ondansetron [Zofran] 4 mg PO Q8HR PRN PRN Reason: Nausea Omeprazole [PriLOSEC] 20 mg PO DAILY Escitalopram [Lexapro] 10 mg PO DAILY Nortriptyline HCl [Pamelor] 50 mg PO DAILY Latanoprost/Pf [Latanoprost 0.005% Eye Drop] 1 drop BOTH EYES HS Baclofen [Lioresal] 20 mg PO TID Lisinopril [Zestril] 10 mg PO DAILY Levothyroxine Sodium [Synthroid] 100 mcg PO DAILY Discontinued Ranitidine HCl 150 mg PO DAILY Discharge Medication List Escitalopram [Lexapro] 10 mg PO DAILY 01/24/17 [History] LORazepam [Ativan] 1 mg PO BID 01/24/17 [History] Omeprazole [PriLOSEC] 20 mg PO DAILY 01/24/17 [History] Ondansetron [Zofran] 4 mg PO Q8HR PRN 01/24/17 [History] Pravastatin Sodium [Pravachol] 20 mg PO HS 01/24/17 [History] QUEtiapine FUMARATE [SEROquel] 150 mg PO HS 01/24/17 [History] Baclofen [Lioresal] 20 mg PO TID 07/05/18 [History] Latanoprost/Pf [Latanoprost 0.005% Eye Drop] 1 drop BOTH EYES HS 07/05/18 [History] Levothyroxine Sodium [Synthroid] 100 mcg PO DAILY 07/05/18 [History] Lisinopril [Zestril] 10 mg PO DAILY 07/05/18 [History] Nortriptyline HCl [Pamelor] 50 mg PO DAILY 07/05/18 [History] Aspirin 81 mg PO DAILY #30 chewable 07/07/18 [Rx] Metoprolol Tartrate [Lopressor] 25 mg PO BID #60 tab 07/07/18 [Rx] Follow up Appointment(s)/Referral(s): Ramona Xiong MD [Primary Care Provider] - 1-2 days
[2018-07-07] MEDS ORDERED: METOPROLOL TARTRATE 25 MG TAB PO SCH (21:00)
== END 2018-07-07 18:57 ==
LOC: EC 18:13 → 1SOBS 19:57
PROVIDERS: ADMIT Internal Medicine; ATTEND Internal Medicine
DX: I25.110 Atherosclerotic heart disease of native coronary artery with unstable angina pectoris (principal); K30 Functional dyspepsia; I10 Essential (primary) hypertension; E03.9 Hypothyroidism, unspecified; D75.89 Other specified diseases of blood and blood-forming organs; K29.70 Gastritis, unspecified, without bleeding; E78.5 Hyperlipidemia, unspecified; F32.9 Major depressive disorder, single episode, unspecified; F41.9 Anxiety disorder, unspecified; M19.90 Unspecified osteoarthritis, unspecified site; M06.9 Rheumatoid arthritis, unspecified; H40.9 Unspecified glaucoma; Z90.49 Acquired absence of other specified parts of digestive tract; Z87.891 Personal history of nicotine dependence; Z79.899 Other long term (current) drug therapy; Z79.890 Hormone replacement therapy; Z88.8 Allergy status to other drugs, medicaments and biological substances
CPT/HCPCS: 93005 ×2; 96360; 96361 ×2; 96372 ×3; 99285; 36415; 93306; 93458; 85379; 83880; 80061; 80053; 80048; 83735; 84484 ×2; 85025 ×2; 85610; 85730; 71046; G0378 ×3; C1760; C1769 ×3; C1894; J2250; J1644 ×3; J3010; Q9967

== ENCOUNTER → 2020-03-22 | Outpatient (CLI) | payer MEDICARE, OTHER ==
--- NOTE | 2020-03-22 09:02 | MR ---
MRI CERVICAL SPINE: CLINICAL HISTORY: Cervical radiculopathy per order. Headache with neck pain causing numbness and arms and hands for 3 years per patient TECHNIQUE: Multiplanar, multisequence imaging of the cervical spine is performed without IV contrast. COMPARISON: None. FINDINGS: Sagittal images of the cervical spine show the craniocervical junction to appear within nor mal limits. The cervical and upper thoracic spinal cord is normal in caliber and signal. Subtle grad e 1 anterolisthesis C3 on C4 with more prominent grade 1 retrolisthesis C4 on C5 and C5 on C6. Subtle grade 1 retrolisthesis C6 on C7. The vertebral body heights are normal. Moderate disc space narrowi ng and spurring C4-C5 through C6-C7 levels. Heterogeneous Modic type I and type II endplate changes C 4-C5 and C5-C6 levels. Axial images at C2-C3 level shows focal central disc protrusion effacing anterior thecal sac, patent bilateral neural foramina. Axial images at C3-C4 level show spondylolisthesis with lobulated disc protrusion effacing anterior t hecal sac, there is mild to moderate left-sided neural foraminal narrowing Axial images at C4-C5 level show spondylolisthesis with broad-based right precentral disc protrusion effacing anterior thecal sac. There is uncovertebral facet degenerative change bilaterally. There is advanced right and moderate to advanced left-sided neural foraminal narrowing. Axial images at C5-C6 level shows spondylosis with focal right paracentral disc protrusion effacing t he anterolateral thecal sac up to ventral surface of spinal cord and causing advanced left and modera te to advanced right-sided neural foraminal narrowing. Axial images at C6-C7 level show spondylolisthesis with lobulated broad-based posterior disc protrusi on effaces the anterior thecal sac and causing moderate left and fairly advanced right-sided neural f oraminal narrowing due to foraminal disc protrusion component. Axial images at C7-T1 level shows a left paracentral disc protrusion effacing anterior thecal sac, th ere is additional lobulated disc herniation causing mild to moderate bilateral neural foraminal narro wing. IMPRESSION: Multilevel spondylolisthesis and moderate to advanced degenerative changes in the cervica l spine as detailed above findings greatest at C4-C5 through C6-C7 levels.
== END | disposition home or self-care (01) ==
LOC: RADMRIMAIN 08:01
PROVIDERS: ATTEND Family Medicine
DX: M48.02 Spinal stenosis, cervical region (principal); M50.21 Other cervical disc displacement, high cervical region; M43.12 Spondylolisthesis, cervical region; M47.812 Spondylosis without myelopathy or radiculopathy, cervical region
CPT/HCPCS: 72141

== ENCOUNTER 2022-09-02 20:04 | Emergency (ER) | payer MEDICARE, OTHER ==
[2022-09-02 20:54] LABS: Basophils # (A) 0.1 k/uL (0-0.2); Basophils % (A) 1 %; Eosinophils # (A) 0.2 k/uL (0-0.7); Eosinophils % (A) 2 %; HCT 36.8 % (34.0-46.0); HGB 11.8 gm/dL (11.4-16.0); Lymphocytes # (A) 2.7 k/uL (1.0-4.8); Lymphocytes % (A) 34 %; MCH 33.3 pg (25.0-35.0); MCV 103.8 fL (80.0-100.0); Macrocytosis Slight; Mean Platelet Volume 7.9; Monocytes # (A) 0.4 k/uL (0-1.0); Monocytes % (A) 5 %; Neutrophils # (A) 4.5 k/uL (1.3-7.7); Neutrophils % (A) 57 %; Platelet Count 316 k/uL (150-450); RBC 3.55 m/uL (3.80-5.40)
[2022-09-02 21:01] LABS: Albumin 4.6 g/dL (3.5-5.0); Calcium 9.5 mg/dL (8.4-10.2); Magnesium 1.7 mg/dL (1.6-2.3); Potassium 4.6 mmol/L (3.5-5.1); Total Bilirubin 0.6 mg/dL (0.2-1.3); Total Protein 7.9 g/dL (6.3-8.2)
--- NOTE | 2022-09-02 21:20 | US ---
EXAMINATION TYPE: US venous doppler duplex UE RT DATE OF EXAM: 09/02/2022 COMPARISON: NONE CLINICAL INDICATION: Female, 72 years old with history of R upper arm pain; Right arm rash that hurts , no swelling, no h/o dvt, no injury SIDE PERFORMED: Right Right Arm: Negative for DVT Grayscale, color doppler, spectral doppler imaging performed of the deep veins of the upper extremiti es. There is normal flow, compressibility and vascular waveforms. IMPRESSION: No evidence for deep vein thrombosis of the right upper extremity.
[2022-09-02 21:31] LABS: Prothrombin Time 10.6 sec (9.0-12.0)
[2022-09-02 21:32] LABS: Partial Thromboplastin Time 22.4 sec (22.0-30.0)
[2022-09-02] MEDS ORDERED: diphenhydrAMINE 50 MG/ML 1 ML VIAL IVP STA (21:33)
[2022-09-02] MEDS ORDERED: KETOROLAC 15 MG/ML 1 ML VIAL IVP STA (21:59)
--- NOTE | 2022-09-02 22:02 | ED ---
General Adult HPI - General Chief complaint: Extremity Problem,Nontraumatic Stated complaint: right arm rash Time Seen by Provider: 09/02/22 20:14 Source: patient, RN notes reviewed Mode of arrival: ambulatory Limitations: no limitations - History of Present Illness Initial comments: 72-year-old male with past medical history significant for rheumatoid arthritis to the emergency department with a chief complaint of right arm rash. Patient reports that she was given an infusion on 08/29/2022 for her rheumatoid arthritis. She reports every since worsening pain that started in her right axilla that has radiated down into her right upper arm. She reports 2 linear rashes that are tender. She has not taken anything for his symptoms. She d enies any trauma or injury. She denies any anticoagulant use. She denies any fever, fatigue, cough, congestion, shortness of breath, chest pain, nausea, vomiting, diarrhea. - Related Data Home Medications Medication Instructions Recorded Confirmed Escitalopram [Lexapro] 10 mg PO DAILY 01/24/17 07/09/19 LORazepam [Ativan] 1 mg PO BID 01/24/17 07/09/19 Omeprazole [PriLOSEC] 20 mg PO DAILY 01/24/17 07/09/19 Ondansetron [Zofran] 4 mg PO Q8HR PRN 01/24/17 07/09/19 Pravastatin Sodium [Pravachol] 20 mg PO HS 01/24/17 07/09/19 QUEtiapine FUMARATE [SEROquel] 150 mg PO HS 01/24/17 07/09/19 Baclofen [Lioresal] 20 mg PO TID 07/05/18 07/09/19 Latanoprost/Pf [Latanoprost 0.005% 1 drop BOTH EYES HS 07/05/18 07/09/19 Eye Drop] Levothyroxine Sodium [Synthroid] 100 mcg PO DAILY 07/05/18 07/09/19 Nortriptyline HCl [Pamelor] 50 mg PO DAILY 07/05/18 07/09/19 Albuterol Inhaler [Ventolin Hfa 1 puff INHALATION TID PRN 10/02/18 07/09/19 Inhaler] Previous Rx's Medication Instructions Recorded Aspirin 81 mg PO DAILY #30 chewable 07/07/18 Metoprolol Tartrate [Lopressor] 25 mg PO BID #60 tab 07/07/18 predniSONE 50 mg PO DAILY #5 tab 09/02/22 Allergies Allergy/AdvReac Type Severity Reaction Status Date / Time tocilizumab [From Actemra] Allergy Intermediate Rash/Hives Verified 07/09/19 09:56 Review of Systems ROS Statement: Those systems with pertinent positive or pertinent negative responses have been documented in the HPI. ROS Other: All systems not noted in ROS Statement are negative. 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 Eyes PERRL, EOMI intact, mucous membranes moist Respiratory: Lungs clear to auscultation bilaterally Cardiovascular: Heart rate regular rate and rhythm Abdominal: Soft without guarding or rebound Extremities: Normal inspection with full range of motion and normal capillary refill, 2 linear areas of erythema to her right upper arm without market edema 2+ radial pulses Neuroogic: alert and oriented 3, CN II-XII intact, able to ambulate with steady gait Skin: warm dry and intact with normal color Limitations: no limitations Course Vital Signs 09/02/22 09/02/22 20:09 22:14 Temperature 97.4 F L 98.0 F Pulse Rate 102 H 84 Respiratory 16 20 Rate Blood Pressure 128/68 145/77 O2 Sat by Pulse 97 95 Oximetry EKG Findings - EKG Comments: EKG Findings:: Rate 87 bpm normal sinus rhythm OK interval 128, QRS duration 82, QT/QTC 349/394 Medical Decision Making - Medical Decision Making Was pt. sent in by a medical professional or institution (, PA, FLEET DRIVER, urgent care, hospital, or [facility]...) When possible be specific @ -[No] Did you speak to anyone other than the patient for history (EMS, parent, family, police, friend...)? What history was obtained from this source @ -[No] Did you review nursing and triage notes (agree or disagree)? Why? @ -[I reviewed and agree with nursing and triage notes] Were old charts reviewed (outside hosp., previous admission, EMS record, old EKG, old radiological studies, urgent care reports/EKG's, [facility] records)? Report findings @ -[No old charts were reviewed] Differential Diagnosis (chest pain, altered mental status, abdominal pain women, abdominal pain men, vaginal bleeding, weakness, fever, dyspnea, syncope, headache, dizziness, GI bleed, back pain, seizure, CVA, palpatations, mental health, musculoskeletal)? @ -[not applicable] EKG interpreted by me (3pts min.). @ -[As above] X-rays interpreted by me (1pt min.). @ -[None done] CT interpreted by me (1pt min.). @ -[None done] U/S interpreted by me (1pt. min.). @ -[None done] What testing was considered but not performed or refused? (CT, X-rays, U/S, labs)? Why? @ -[None] What meds were considered but not given or refused? Why? @ -[None] Did you discuss the management of the patient with other professionals (professionals i.e. , PA, FLEET DRIVER, lab, RT, psych nurse, social worker health services, devops developer, teacher, juvenile correctional officer, window caser)? Give summary @ -[No] Was smoking cessation discussed for >3mins.? @ -[No] Was critical care preformed (if so, how long)? @ -[No] Were there social determinants of health that impacted care today? How? (Homelessness, low income, unemployed, alcoholism, drug addiction, transportation, low edu. Level, literacy, decrease access to med. care, penitentiary, rehab)? @ -[No] Was there de-escalation of care discussed even if they declined (Discuss DNR or withdrawal of care, Hospice)? DNR status @ -[No] What co-morbidities impacted this encounter? (DM, HTN, Smoking, COPD, CAD, Cancer, CVA, ARF, Chemo, Hep., AIDS, mental health diagnosis, sleep apnea, morbid obesity)? @ -[None] Was patient admitted / discharged? Hospital course, mention meds given and route, prescriptions, significant lab abnormalities, going to OR and other pertinent info. @ -Discharged. This is a 72 year-old male who presents the emergency department with right arm pain. Patient had a thorough history and physical exam performed, physical exam reveals heart rate regular rate and rhythm, lungs clear to auscultation bilaterally abdomen is soft and non-tender. Patient able to ambulate with a steady gait. No neurological deficits are noted. patient had lab work and imaging performed which was essentially unremarkable. Patient given Toradol, benadyl, 1L IV fluids with symptomatic relief. I discussed the results in detail with the patient verbalized understanding and all questions were addressed. Return precautions were discussed at length. Discharged in stable condition. Case discussed with Dr. Hobson [facility] who agrees with plan of care Undiagnosed new problem with uncertain prognosis? @ -[No] Drug Therapy requiring intensive monitoring for toxicity (Heparin, Nitro, Insulin, Cardizem)? @ -[No] Were any procedures done? @ -[No] Diagnosis/symptom? @ -right arm rash Acute, or Chronic, or Acute on Chronic? @ -acute Uncomplicated (without systemic symptoms) or Complicated (systemic symptoms)? @ -uncomplicated Side effects of treatment? @ -[No] Exacerbation, Progression, or Severe Exacerbation? @ -[No] Poses a threat to life or bodily function? How? (Chest pain, [place], [place], pneumonia, PE, COPD, DKA, ARF, appy, cholecystitis, CVA, Diverticulitis, Homicidal, Suicidal, threat to staff... and all critical care pts) @ -low likelihood - Lab Data Result diagrams: 09/02/22 20:28 09/02/22 20:28 Lab Results 09/02/22 09/02/22 09/02/22 Range/Units 20:28 20:28 20:28 WBC 8.0 (3.8-10.6) k/uL RBC 3.55 L (3.80-5.40) m/uL Hgb 11.8 (11.4-16.0) gm/dL Hct 36.8 (34.0-46.0) % MCV 103.8 H (80.0-100.0) fL MCH 33.3 (25.0-35.0) pg MCHC 32.0 (31.0-37.0) g/dL RDW 13.0 (11.5-15.5) % Plt Count 316 (150-450) k/uL MPV 7.9 Neutrophils % 57 % Lymphocytes % 34 % Monocytes % 5 % Eosinophils % 2 % Basophils % 1 % Neutrophils # 4.5 (1.3-7.7) k/uL Lymphocytes # 2.7 (1.0-4.8) k/uL Monocytes # 0.4 (0-1.0) k/uL Eosinophils # 0.2 (0-0.7) k/uL Basophils # 0.1 (0-0.2) k/uL Macrocytosis Slight PT 10.6 (9.0-12.0) sec INR 1.0 (<1.2) APTT 22.4 (22.0-30.0) sec Sodium 137 (137-145) mmol/L Potassium 4.6 (3.5-5.1) mmol/L Chloride 102 (98-107) mmol/L Carbon Dioxide 22 (22-30) mmol/L Anion Gap 13 mmol/L BUN 16 (7-17) mg/dL Creatinine 0.84 (0.52-1.04) mg/dL Est GFR (CKD-EPI)AfAm 80 (>60 ml/min/1.73 sqM) Est GFR (CKD-EPI)NonAf 70 (>60 ml/min/1.73 sqM) Glucose 120 H (74-99) mg/dL Calcium 9.5 (8.4-10.2) mg/dL Magnesium 1.7 (1.6-2.3) mg/dL Total Bilirubin 0.6 (0.2-1.3) mg/dL AST 81 H (14-36) U/L ALT 92 H (4-34) U/L Alkaline Phosphatase 79 (38-126) U/L Troponin I (0.000-0.034) ng/mL Total Protein 7.9 (6.3-8.2) g/dL Albumin 4.6 (3.5-5.0) g/dL 09/02/22 Range/Units 20:28 WBC (3.8-10.6) k/uL RBC (3.80-5.40) m/uL Hgb (11.4-16.0) gm/dL Hct (34.0-46.0) % MCV (80.0-100.0) fL MCH (25.0-35.0) pg MCHC (31.0-37.0) g/dL RDW (11.5-15.5) % Plt Count (150-450) k/uL MPV Neutrophils % % Lymphocytes % % Monocytes % % Eosinophils % % Basophils % % Neutrophils # (1.3-7.7) k/uL Lymphocytes # (1.0-4.8) k/uL Monocytes # (0-1.0) k/uL Eosinophils # (0-0.7) k/uL Basophils # (0-0.2) k/uL Macrocytosis PT (9.0-12.0) sec INR (<1.2) APTT (22.0-30.0) sec Sodium (137-145) mmol/L Potassium (3.5-5.1) mmol/L Chloride (98-107) mmol/L Carbon Dioxide (22-30) mmol/L Anion Gap mmol/L BUN (7-17) mg/dL Creatinine (0.52-1.04) mg/dL Est GFR (CKD-EPI)AfAm (>60 ml/min/1.73 sqM) Est GFR (CKD-EPI)NonAf (>60 ml/min/1.73 sqM) Glucose (74-99) mg/dL Calcium (8.4-10.2) mg/dL Magnesium (1.6-2.3) mg/dL Total Bilirubin (0.2-1.3) mg/dL AST (14-36) U/L ALT (4-34) U/L Alkaline Phosphatase (38-126) U/L Troponin I 0.023 (0.000-0.034) ng/mL Total Protein (6.3-8.2) g/dL Albumin (3.5-5.0) g/dL Disposition Clinical Impression: Rash Disposition: HOME SELF-CARE Condition: Stable Additional Instructions: Please return to the nearest emergency department if symptoms worsen or persist Prescriptions: predniSONE 50 mg PO DAILY #5 tab Is patient prescribed a controlled substance at d/c from ED?: No Referrals: Ramona Xiong MD [Primary Care Provider] - 1-2 days Time of Disposition: 22:00
[2022-09-02 22:16] VITALS: BP 145/77; PULSE 84; RESP 20; TEMP 98
== END 2022-09-02 22:16 | disposition home or self-care (01) ==
LOC: EC 20:04
DX: R21 Rash and other nonspecific skin eruption (principal); I10 Essential (primary) hypertension; E07.9 Disorder of thyroid, unspecified; F41.9 Anxiety disorder, unspecified; F32.A Depression, unspecified; Z79.890 Hormone replacement therapy; Z79.899 Other long term (current) drug therapy; Z88.8 Allergy status to other drugs, medicaments and biological substances
CPT/HCPCS: 36415; 93005; 80053; 83735; 84484; 85025; 85610; 85730; 93971; 99284; 96374; 96375; J1200; J1885